=== PATIENT | female | born 1980 | race Hispanic/Latino ===

== ENCOUNTER 2021-03-18 22:22 | Emergency (ER) | payer OTHER ==
[2021-03-18 23:14] LABS: CORONAVIRUS COVID-19 NAA POSITIVE (NEGATIVE); INFLUENZA A NAA NEGATIVE (NEGATIVE); INFLUENZA B NAA NEGATIVE (NEGATIVE); RESPIRATORY SYNCYTIAL VIR NAA NEGATIVE (NEGATIVE)
== END 2021-03-19 00:27 | disposition home or self-care (01) ==
LOC: MW.ED 22:22
DX: U07.1 COVID-19 (principal)
CPT/HCPCS: 0241U; 93005; 99284